=== PATIENT | male | born 2000 | race Two or more races ===

== ENCOUNTER 2023-08-23 18:11 | Emergency (ER) | payer SELFPAY ==
[2023-08-23 18:36] VITALS: BMI 34.1
[2023-08-23 20:30] VITALS: BP 143/83; PULSE 90; RESP 18; TEMP 98.2
== END 2023-08-23 21:59 | disposition home or self-care (01) ==
LOC: JERFT 18:11
DX: J02.9 Acute pharyngitis, unspecified (principal); J06.9 Acute upper respiratory infection, unspecified; B34.9 Viral infection, unspecified; R50.9 Fever, unspecified; R05.9 Cough, unspecified; R09.81 Nasal congestion; R42 Dizziness and giddiness; R49.0 Dysphonia; Z20.822 Contact with and (suspected) exposure to COVID-19
CPT/HCPCS: 0241U-QW; 87651; 99283-25